=== PATIENT | male | born 1975 | race Caucasian/White ===

== ENCOUNTER 2016-08-28 13:20 | Emergency (ER) | payer MEDICAID ==
--- NOTE | 2016-08-28 14:14 | ED Physician Documentation ---
PD HPI UPPER EXT INJURY - Stated complaint Stated Complaint: CUT RIGHT FINGER - Chief complaint Chief Complaint: Laceration - History obtained from History obtained from: Patient - History of Present Illness Location: Right, Finger (index finger tip) Type of injury: Laceration (fingertip struck sheetmetal on dryer, with avulsion of skin at tip, not into nailbed. It persists bleeding.) Timing - onset: Today Timing - details: Abrupt onset Similar symptoms before: Has not had sx before Recently seen: Not recently seen Review of Systems Constitutional: denies: Fever, Chills Neurologic: denies: Focal weakness, Numbness, Near syncope PD PAST MEDICAL HISTORY - Past Medical History Cardiovascular: None Endocrine/Autoimmune: None Musculoskeletal: None - Present Medications Home Medications: Ambulatory Orders Medication Instructions Recorded Confirmed No Known Home Medications [No 08/28/16 08/28/16 Known Home Medications] - Allergies Allergies/Adverse Reactions: Allergies Allergy/AdvReac Type Severity Reaction Status Date / Time No Known Drug Allergies Allergy Verified 08/28/16 13:41 PD ED PE NORMAL - Vitals Vital signs reviewed: Yes - General General: Alert and oriented X 3, Well developed/nourished - Derm Derm: Normal color, Warm and dry - Extremities Extremities: Other (right index fingertip with avulsion in V-shape, with center down to just fatty tissue and mild ongoing red bleeding without pressure applied. Not into nailbed. No FB. ) Results - Vitals Vitals: Vital Signs - 24 hr 08/28/16 08/28/16 13:35 15:01 Temperature 36.4 C L 36.6 C Heart Rate 71 72 Respiratory 14 16 Rate Blood Pressure 129/78 128/74 O2 Saturation 100 100 Oxygen O2 Source Room air Procedures - Laceration (location) right index finger tip Length in cm: 1 Wound type: Into subcut fat, Clean Neurovascular status: Sensory intact, Motor intact Anesthesia: Marcaine 0.5% Wound Preparation: No: FB identified Skin layer closure: Nylon, Running, Size #-0 - enter number (4), Sutures - enter # (5) Other: Patient tolerated well, No complications, Neurovascular intact, Dressing applied, Tetanus UTD Complexity: Simple PD MEDICAL DECISION MAKING - ED course Complexity details: considered differential (Small avulsion but it is in some V- shape and bleeding regularly, so at small vessel. I think it is amenable to suturing, with just some contour change that should fill out with healing, but this would heal better and take care of the bleeding now. ), d/w patient Departure - Departure Disposition: 01 Home, Self Care Clinical Impression: Finger laceration Qualifiers: Encounter type: initial encounter Qualified Code(s): S61.219A - Laceration without foreign body of unspecified finger without damage to nail, initial encounter Condition: Stable Record reviewed to determine appropriate education?: Yes Instructions: ED Laceration Hand Comments: It is okay to wash and shower. Clean off the wound twice a day with soap and water, or peroxide and water. Apply some antibiotic ointment to it to keep it moist. Also to watch for signs of infection such as purulence, redness or increasing pain. Return to your primary care or the ER at the specified time for suture removal. Tylenol or ibuprofen if needed for pain. Suture removal 10 -12 days. Discharge Date/Time: 08/28/16 15:04
[2016-08-28 15:02] VITALS: BP 128/74
== END 2016-08-28 15:04 | disposition home or self-care (01) ==
LOC: ED 13:20
DX: S61.210A Laceration without foreign body of right index finger without damage to nail, initial encounter (principal); W51.XXXA Accidental striking against or bumped into by another person, initial encounter
CPT/HCPCS: 12001; 99283

== ENCOUNTER 2016-09-10 13:37 | Emergency (ER) | payer MEDICAID ==
[2016-09-10 13:45] VITALS: BP 120/79
--- NOTE | 2016-09-10 13:50 | ED Physician Documentation ---
PD HPI WOUND RECHECK - Stated complaint Stated Complaint: SUTURE REMOVAL - Chief complaint Chief Complaint: Wound - Histroy obtained from History obtained from: Patient - History of Present Illness Location: Other (Finger sutured a couple of weeks ago and here for suture removal. No specific complaints except for sensitivity at the site.) PD PAST MEDICAL HISTORY - Past Medical History Past Medical History: No Cardiovascular: None Endocrine/Autoimmune: None Musculoskeletal: None - Past Surgical History Past Surgical History: No - Present Medications Home Medications: Ambulatory Orders Medication Instructions Recorded Confirmed No Known Home Medications [No 08/28/16 08/28/16 Known Home Medications] - Allergies Allergies/Adverse Reactions: Allergies Allergy/AdvReac Type Severity Reaction Status Date / Time No Known Drug Allergies Allergy Verified 08/28/16 13:41 - Social History Does the pt smoke?: No Smoking Status: Never smoker Does the pt drink ETOH?: No Does the pt have substance abuse?: No - Immunizations Immunizations are current?: Yes PD ED PE NORMAL - Vitals Vital signs reviewed: Yes - General General: Alert and oriented X 3, No acute distress - Extremities Extremities: Other (Sutures in the finger are clean dry and intact and removed during examination without difficulty.) - Neuro Neuro: Alert and oriented X 3, Normal speech - Psych Psych: Normal mood, Normal affect Results - Vitals Vitals: Vital Signs - 24 hr 09/10/16 13:44 Temperature 36.4 C L Heart Rate 86 Respiratory 16 Rate Blood Pressure 120/79 O2 Saturation 100 Oxygen O2 Source Room air Departure - Departure Disposition: 01 Home, Self Care Clinical Impression: Encounter for removal of sutures Condition: Good
== END 2016-09-10 13:49 | disposition home or self-care (01) ==
LOC: ED 13:37
DX: S61.210D Laceration without foreign body of right index finger without damage to nail, subsequent encounter (principal); X58.XXXD Exposure to other specified factors, subsequent encounter
CPT/HCPCS: 99281; 99282